=== PATIENT | male | born 1990 | race African-American/Black ===

== ENCOUNTER 2025-03-28 18:59 | Emergency (ER) | payer OTHER ==
[~2025-03-28] VITALS: Ht 185.4 cm; Wt 84.0 kg
[2025-03-28 19:07] VITALS: BP 131/81; PULSE 111; RESP 18; TEMP 98.5; O2SAT 98
[2025-03-28] MEDS: IBUPROFEN 400 MG TABLET PO ONE (22:31)
[2025-03-28] MEDS: PERTUSS(ACELL),DIPH,TET/PF 0.5 ML SYRINGE [ADULT] IM. ONE (22:32)
== END 2025-03-28 22:38 | disposition home or self-care (01) ==
LOC: EMS 18:59
DX: S53.402A Unspecified sprain of left elbow, initial encounter (principal); V48.6XXA Car passenger injured in noncollision transport accident in traffic accident, initial encounter; Y93.89 Activity, other specified; Y92.410 Unspecified street and highway as the place of occurrence of the external cause; Y99.8 Other external cause status
CPT/HCPCS: 90715; 99283